=== PATIENT | female | born 1940 | race Caucasian/White ===

== ENCOUNTER 2023-07-05 07:42 | Outpatient (OUT) | payer MEDICARE, OTHER, SELFPAY ==
--- NOTE | 2023-07-05 09:05 | CA_ITS ---
Patient: LUISANA ROSSI Exam Date: 07/05/2023 : 1940 Gender:F Ordering : DR SINAI CRAWLEY M.D. Admission #: [id number] Family : DR JOSE ALFREDO ALBRECHT M.D. Order #: [id number] CLICK HERE TO VIEW EXAM ECHOCARDIOGRAM REPORT PROCEDURE: CA ECHO DOPPLER COMPLETE INDICATIONS: Peripheral edema COMPARISON: None. DESCRIPTION: COMPLETE ECHOCARDIOGRAM Real-time transthoracic echocardiography with 2D, M-mode, spectral and color flow Doppler performed. QUALITY: Technical quality was good. LEFT VENTRICLE: Normal chamber size. Proximal septal hypertrophy (sigmoid septum). Global left ventricular systolic function is normal. LV EF: Estimated left ventricular ejection fraction is 55-60%. DIASTOLIC: Diastolic function is indeterminate. ATRIAL SEPTUM: LEFT ATRIUM: Mild dilatation. RIGHT ATRIUM: Moderate dilatation. RIGHT VENTRICLE: Mild dilatation. Normal right ventricular systolic function. TRICUSPID VALVE: Normal mobility and thickness. No stenosis with moderate regurgitation. Mild pulmonary hypertension. RVSP 35 mmHg MITRAL VALVE: Normal mobility and thickness. No evidence of mitral valve stenosis. There is no mitral annular calcification. Mild to moderate mitral regurgitation. AORTIC VALVE: Normal trileaflet appearance. No visible sclerosis. Normal leaflet mobility. No evidence of aortic valve stenosis. No aortic regurgitation. AORTIC ROOT: Normal diameter and appearance. PULMONIC VALVE: Normal thickness and mobility. No stenosis. Mild regurgitation. PERICARDIUM: No evidence of pericardial effusion. IVC: Collapses with inspirations. Normal size. PLEURA: CONCLUSION: 1. Left ventricular systolic function is normal. LVEF is 55-60%. 2. Mildly dilated right ventricle with normal systolic function. 3. Mild to moderate biatrial dilatation. 4. Mild to moderate mitral regurgitation. 5. Moderate tricuspid regurgitation. 6. Mildly elevated right sided pressures. 7. Premature atrial contractions were noted during the exam. Adult Echocardiography Procedure Report Left Ventricle LVEDD (3.7 - 5.6 cm): 4.34 cm LVESD (2.2 - 4.0 cm): 2.44 cm LVIVS thickness (0.6 - 1.2 cm): 1.05 cm LVPW thickness (0.5 - 1.0 cm): 0.85 cm e': 0.11 m/s E - e': 6.05 LVOT Max Gradient: 1.32 mm[Hg] LVOT Area (cm2): 0.58 m/s Peak Velocity (LVOT): 0.58 m/s Mean Velocity (LVOT): 0.42 m/s LVOT Diameter 2.02 cm Left Ventricular Ejection Fraction: 55-60 % Left Atrium LA Volume Index (2D A2C): 51.14 ml/m2 Left Atrium Systolic Dimension: 3.80 cm Mitral Valve MV E to A Ratio: 1.60 Mitral Valve A-Wave Peak Velocity: 0.43 m/s Mitral Valve E-Wave Peak Velocity: 0.69 m/s Right Ventricle RV Internal Diastolic Dimension: 4.29 cm Aorta AO Root Diam: 3.07 cm Ascending Ao Diam: 3.12 cm Aortic Valve AoV Area (Peak Urban): 1.76 cm2, 1.76 cm2 AoV Area (VTI): 2.00 cm2, 2.00 cm2 Peak Velocity(Antegrade Flow): 1.05 m/s Peak Gradient(Antegrade Flow): 4.40 mm[Hg] Mean Velocity(Antegrade Flow): 0.76 m/s Mean Gradient(Antegrade Flow): 2.61 mm[Hg] Velocity Time Integral: 23.23 cm Tricuspid Valve Peak Velocity (Regurgitant Flow): 2.48 m/s, 2.84 m/s, 2.77 m/s Pulmonic Valve Mean Gradient: 1.30 mm[Hg], 1.55 mm[Hg] Mean Velocity: 0.54 m/s, 0.59 m/s Peak Velocity: 0.75 m/s Peak Gradient: 2.06 mm[Hg], 2.40 mm[Hg] Right Atrium Right Atrium Systolic Pressure: 78.53 ml, 78.53 ml Dictated by: Toribio Montana M.D. on 07/05/2023 at 19:32 Approved by: Toribio Montana M.D. on 07/05/2023 at 19:42
== END 2023-07-05 07:43 | disposition home or self-care (01) ==
LOC: CARD 07:46
PROVIDERS: PCP Family Medicine; Visit Provider Family Medicine
DX: R60.9 Edema, unspecified (principal); I08.1 Rheumatic disorders of both mitral and tricuspid valves
CPT/HCPCS: 93306